=== PATIENT | male | born 1945 | race Caucasian/White ===

== ENCOUNTER 2017-01-19 12:13 | Emergency (ER) | payer MEDICARE ==
[~2017-01-19] VITALS: Ht 186.7 cm; Wt 85.0 kg
[~2017-01-19 12:13] MED LIST: ASPI1TAB69 PO; FINA5TAB2 PO; FISHCAP4 PO; MULTTAB67 PO; OMEP40CA2 PO; PRIL20CA9 PO; PROS5TAB PO; TAMS5CAP PO; TEST1GEL5 TOPICAL
[2017-01-19 12:19] VITALS: BP 142/80; PULSE 72; RESP 16; TEMP 97.9; O2SAT 98
--- NOTE | 2017-01-19 12:45 | PD ---
HPI Chief Complaint: Skin Problem Time Seen by Provider: 12:45 Travel History International Travel<30 days: No Contact w/Intl Traveler<30days: No Traveled to known affect area: No History of Present Illness HPI 71-year-old male with history of malignant melanoma, presents the emergency department for evaluation of increasing redness and swelling on the left side of his neck where his melanoma was removed. This was removed back in August at [facility]. Patient states yesterday he got a haircut around 1:00 in the neck was not swollen or red. He does not recall being nicked or cut and believes he may have been written by an insect or chills. States the area is numb so he doesn't really have any pain. Doesn't report any airway difficulties and states he doesn't feel like maybe something is different when he swallows but no difficulty swallowing. He is able to control secretions. Patient states he noticed the swelling and redness worsening and is now on his chest and up to his face so he came to the emergency department for evaluation. Patient states he has no other significant medical history. Takes no other medications. PFSH Past Medical History Cancer: Yes (melanoma) Diabetes: No Glaucoma: No Hepatitis: No Hiatal Hernia: No Hypertension: No Thyroid Disease: No Past Surgical History Abdominal Surgery: Yes (BILATERAL INGUINAL HERNIA REPAIR) AICD: Yes Cardiac Surgery: No Ear Surgery: No Endocrine Surgery: No Eye Surgery: Yes (chinyere for cataracts and detached retinas) Genitourinary Surgery: No Gynecologic Surgery: No Oral Surgery: Yes (deviated septum repair) Pacemaker: No Thoracic Surgery: No Social History Alcohol Use: Yes (rare) Tobacco Use: No (STOPPED IN EARLY 1979) Allergies-Medications (Allergen,Severity, Reaction): Coded Allergies: No Known Allergies (Verified , 09/28/16) Reported Meds & Prescriptions Reported Meds & Active Scripts Active Bactrim DS (Sulfamethoxazole-Trimethoprim) 800-160 Mg Tab 1 Tab PO BID Finasteride 5 Mg Tab 5 Mg PO DAILY Do not crush. Reported Prilosec (Omeprazole) 20 Mg Cap 75 Mg PO DAILY Omeprazole 40 Mg Cap 40 Mg PO DAILY Multiple Vitamin 1 Tab 1 Tab PO DAILY Fish Oil + D3 (Fish Oil-Cholecalciferol) 1,200-1,000 Mg-Unit Cap 1 Cap PO DAILY Aspirin 81 Mg Tabdr 81 Mg PO DAILY Testim Topical (Testosterone) 50 Mg/5 Gm Gel 1 % TOPICAL DAILY Proscar (Finasteride) 5 Mg Tab 5 Mg PO DAILY Do not crush. Flomax (Tamsulosin HCl) 0.4 Mg Cap 0.4 Mg PO HS Review of Systems Except as stated in HPI: all other systems reviewed are Neg Physical Exam Narrative GENERAL: Well-nourished elderly male patient, in no acute distress SKIN: Warm and dry. There is a large scarred incision site on the left side of the neck. There is an indurated area in the left anterior lateral neck which measures about 4 cm in diameter. It is fluctuant but there is no pointing or drainage. There is a zone of inflammation around it but no lymphangitis. Erythema does extend the patient's chest and onto the patient's face. HEAD: Atraumatic. Normocephalic. EYES: Pupils equal and round. No scleral icterus. No injection or drainage. ENT: No nasal bleeding or discharge. Mucous membranes pink and moist. NECK: Trachea midline. No JVD. CARDIOVASCULAR: Regular rate and rhythm. No murmur appreciated. RESPIRATORY: No accessory muscle use. Clear to auscultation. Breath sounds equal bilaterally. GASTROINTESTINAL: Abdomen soft, non-tender, nondistended. Hepatic and splenic margins not palpable. MUSCULOSKELETAL: No obvious deformities. No clubbing. No cyanosis. No edema. NEUROLOGICAL: Awake and alert. No obvious cranial nerve deficits. Motor grossly within normal limits. Normal speech. PSYCHIATRIC: Appropriate mood and affect; insight and judgment normal. Data Data Last Documented VS Vital Signs Date Time Temp Pulse Resp B/P Pulse Ox O2 Delivery O2 Flow Rate FiO2 01/19/17 17:37 77 18 01/19/17 17:31 98.2 157/74 100 Room Air Orders Complete Blood Count With Diff (01/19/17 12:45) Basic Metabolic Panel (Bmp) (01/19/17 12:45) ^ Saline Lock (01/19/17 17:37) Wound Culture And Gram Stain (01/19/17 17:58) Labs Laboratory Tests Test 01/19/17 12:35 White Blood Count 8.8 TH/MM3 Red Blood Count 4.21 MIL/MM3 Hemoglobin 12.4 GM/DL Hematocrit 36.4 % Mean Corpuscular Volume 86.5 FL Mean Corpuscular Hemoglobin 29.5 PG Mean Corpuscular Hemoglobin 34.1 % Concent Red Cell Distribution Width 12.7 % Platelet Count 199 TH/MM3 Mean Platelet Volume 7.6 FL Neutrophils (%) (Auto) 76.4 % Lymphocytes (%) (Auto) 14.3 % Monocytes (%) (Auto) 6.7 % Eosinophils (%) (Auto) 1.7 % Basophils (%) (Auto) 0.9 % Neutrophils # (Auto) 6.7 TH/MM3 Lymphocytes # (Auto) 1.3 TH/MM3 Monocytes # (Auto) 0.6 TH/MM3 Eosinophils # (Auto) 0.2 TH/MM3 Basophils # (Auto) 0.1 TH/MM3 CBC Comment DIFF FINAL Differential Comment Sodium Level 137 MEQ/L Potassium Level 4.8 MEQ/L Chloride Level 104 MEQ/L Carbon Dioxide Level 27.0 MEQ/L Anion Gap 6 MEQ/L Blood Urea Nitrogen 14 MG/DL Creatinine 0.91 MG/DL Estimat Glomerular Filtration 82 ML/MIN Rate Random Glucose 93 MG/DL Calcium Level 9.2 MG/DL MDM Medical Decision Making Medical Screen Exam Complete: Yes Emergency Medical Condition: Yes Medical Record Reviewed: Yes Differential Diagnosis Abscess versus cellulitis versus metastatic disease versus lymphadenopathy Narrative Course 71-year-old male presents to emergency department for evaluation. Workup was initiated in triage. The patient looks well except there does appear to be an abscess on the left side of his neck. Once a medical bed becomes available, patient will be transferred and care assumed by Dr. amato. Scripts Sulfamethoxazole-Trimethoprim (Bactrim DS)800-160 Mg Tab1 Tab PO BID #20 TAB Ref 0 Prov:Jignesh Sevilla MD 01/19/17 Condition: Stable Margaret Pleitez Jan 19, 2017 12:45
[2017-01-19 12:59] LABS: AUTOMATED NEUTROPHIL # 6.7 TH/MM3 (1.8-7.7); BASOPHIL # 0.1 TH/MM3 (0-0.2); BASOPHIL % 0.9 % (0.0-2.0); EOSINOPHIL # 0.2 TH/MM3 (0-0.4); EOSINOPHIL % 1.7 % (0.0-4.0); HEMATOCRIT 36.4 % (39.0-51.0); HEMO FLAGS DIFF FINAL; LYMPH % 14.3 % (9.0-44.0); LYMPHOCYTE # 1.3 TH/MM3 (1.0-4.8); MEAN CELL VOLUME 86.5 FL (80.0-100.0); MEAN CORPUSCULAR HEMOGLOBIN 29.5 PG (27.0-34.0); MEAN CORPUSCULAR HGB CONC 34.1 % (32.0-36.0); MONO % 6.7 % (0.0-8.0); NEUT % 76.4 % (16.0-70.0); PLATELET COUNT 199 TH/MM3 (150-450); RED BLOOD COUNT 4.21 MIL/MM3 (4.50-5.90); RED CELL DISTRIBUTION WIDTH 12.7 % (11.6-17.2); WHITE BLOOD COUNT 8.8 TH/MM3 (4.0-11.0)
[2017-01-19 13:22] LABS: POTASSIUM 4.8 MEQ/L (3.5-5.1)
[2017-01-19 17:31] VITALS: BP 157/74; PULSE 77; RESP 18; TEMP 98.2; O2SAT 100
[2017-01-19] MEDS ORDERED: BACT800T5 PO (18:16)
--- NOTE | 2017-01-19 18:16 | PD ---
HPI Chief Complaint: Skin Problem Time Seen by Provider: 17:35 Travel History International Travel<30 days: No Contact w/Intl Traveler<30days: No Traveled to known affect area: No History of Present Illness HPI 71-year-old male came to the emergency room sent by his primary care for redness and swelling on the left side of his neck area. Patient had melanoma with lymph node resected from that side on August 2016. It was done by a surgeon Denis Spence from [facility]. Patient says that for past 2 days he has noticed this lump appearing on the left side of his neck just below the jaw. There was some tenderness especially if he pushed on it. He has also noticed some discharge coming out of there. No history of fever or chills. He called his primary care this morning and explained the situation and the primary care asked them to come to the emergency room since he did not have any opening to see him. Patient was seen by the triage provider and blood work was initiated. By the time he came inside the ER and I saw him blood test results were back. They were all within normal limits. Patient did not appear to be in any discomfort. [facility] Past Medical History Narrative Medical List of his past medical, social, surgical and family history is reviewed from the nursing note. Cancer: Yes (melanoma) Diabetes: No Glaucoma: No Hepatitis: No Hiatal Hernia: No Hypertension: No Medical other: Yes (GERD; BPH; ARTHRITIS; ARTHRITIS IN NECK; BILAT DETACHED RETINA) Thyroid Disease: No Past Surgical History Abdominal Surgery: Yes (BILATERAL INGUINAL HERNIA REPAIR) AICD: Yes Cardiac Surgery: No Ear Surgery: No Endocrine Surgery: No Eye Surgery: Yes (chinyere for cataracts and detached retinas) Genitourinary Surgery: No Gynecologic Surgery: No Oral Surgery: Yes (deviated septum repair) Pacemaker: No Thoracic Surgery: No Other Surgery: Yes (CA REMOVAL FROM LEFT NECK, MULTIPLE SKIN CA REMOVALS) Social History Alcohol Use: Yes (rare) Tobacco Use: No (STOPPED IN EARLY 1979) Substance Use: No Allergies-Medications (Allergen,Severity, Reaction): Coded Allergies: No Known Allergies (Verified , 09/28/16) Comments No known drug allergies. Reported Meds & Prescriptions Reported Meds & Active Scripts Active Bactrim DS (Sulfamethoxazole-Trimethoprim) 800-160 Mg Tab 1 Tab PO BID Finasteride 5 Mg Tab 5 Mg PO DAILY Do not crush. Reported Prilosec (Omeprazole) 20 Mg Cap 75 Mg PO DAILY Omeprazole 40 Mg Cap 40 Mg PO DAILY Multiple Vitamin 1 Tab 1 Tab PO DAILY Fish Oil + D3 (Fish Oil-Cholecalciferol) 1,200-1,000 Mg-Unit Cap 1 Cap PO DAILY Aspirin 81 Mg Tabdr 81 Mg PO DAILY Testim Topical (Testosterone) 50 Mg/5 Gm Gel 1 % TOPICAL DAILY Proscar (Finasteride) 5 Mg Tab 5 Mg PO DAILY Do not crush. Flomax (Tamsulosin HCl) 0.4 Mg Cap 0.4 Mg PO HS Narrative Medication List of his home medications reviewed from the nursing note. Review of Systems Except as stated in HPI: all other systems reviewed are Neg Physical Exam Narrative GENERAL: Awake, alert, no obvious distress SKIN: Warm and dry. Surgical scar on the left side of the neck starting from the posterior and inferior auricular area all the way down to the bottom of the neck. This whole area appears to be erythematous and slightly warm to touch. There is a 2 x 2 x 1 cm fluctuant swelling which is tender to touch on moderate pressure. Upon moderate pressure there is some discharge coming out from a tiny opening at the inferior pole of the swelling. This appears to be seropurulent in nature. There is a dark discoloration of the bottom half of the swelling. No obvious bleeding from the area. HEAD: Atraumatic. Normocephalic. EYES: Pupils equal and round. No scleral icterus. No injection or drainage. ENT: No nasal bleeding or discharge. Mucous membranes pink and moist. NECK: Trachea midline. No JVD. Please see above CARDIOVASCULAR: Regular rate and rhythm. No murmur appreciated. RESPIRATORY: No accessory muscle use. Clear to auscultation. Breath sounds equal bilaterally. GASTROINTESTINAL: Abdomen soft, non-tender, nondistended. Hepatic and splenic margins not palpable. MUSCULOSKELETAL: No obvious deformities. No clubbing. No cyanosis. No edema. NEUROLOGICAL: Awake and alert. No obvious cranial nerve deficits. Motor grossly within normal limits. Normal speech. PSYCHIATRIC: Appropriate mood and affect; insight and judgment normal. Data Data Last Documented VS Vital Signs Date Time Temp Pulse Resp B/P Pulse Ox O2 Delivery O2 Flow Rate FiO2 01/19/17 17:37 77 18 01/19/17 17:31 98.2 157/74 100 Room Air Orders Complete Blood Count With Diff (01/19/17 12:45) Basic Metabolic Panel (Bmp) (01/19/17 12:45) ^ Saline Lock (01/19/17 17:37) Wound Culture And Gram Stain (01/19/17 17:58) Labs Laboratory Tests Test 01/19/17 12:35 White Blood Count 8.8 TH/MM3 Red Blood Count 4.21 MIL/MM3 Hemoglobin 12.4 GM/DL Hematocrit 36.4 % Mean Corpuscular Volume 86.5 FL Mean Corpuscular Hemoglobin 29.5 PG Mean Corpuscular Hemoglobin 34.1 % Concent Red Cell Distribution Width 12.7 % Platelet Count 199 TH/MM3 Mean Platelet Volume 7.6 FL Neutrophils (%) (Auto) 76.4 % Lymphocytes (%) (Auto) 14.3 % Monocytes (%) (Auto) 6.7 % Eosinophils (%) (Auto) 1.7 % Basophils (%) (Auto) 0.9 % Neutrophils # (Auto) 6.7 TH/MM3 Lymphocytes # (Auto) 1.3 TH/MM3 Monocytes # (Auto) 0.6 TH/MM3 Eosinophils # (Auto) 0.2 TH/MM3 Basophils # (Auto) 0.1 TH/MM3 CBC Comment DIFF FINAL Differential Comment Sodium Level 137 MEQ/L Potassium Level 4.8 MEQ/L Chloride Level 104 MEQ/L Carbon Dioxide Level 27.0 MEQ/L Anion Gap 6 MEQ/L Blood Urea Nitrogen 14 MG/DL Creatinine 0.91 MG/DL Estimat Glomerular Filtration 82 ML/MIN Rate Random Glucose 93 MG/DL Calcium Level 9.2 MG/DL MDM Medical Decision Making Medical Screen Exam Complete: Yes Emergency Medical Condition: Yes Medical Record Reviewed: Yes Differential Diagnosis Cellulitis with abscess, recurrence of melanoma along with cellulitis Narrative Course 6 PM I wanted to do a CAT scan of the soft tissue of the neck with IV contrast. However patient did not want to wait for the CAT scan since his was waiting for him at home and as per him she would get very agitated if he did not go back home soon. His son was in the room with him. He witnessed the conversation I had with the patient. I explained to the patient that in my opinion given the blood test and my exam I do not see an emergency room doing the CAT scan tonight. Hence he could go home as long as he can get an outpatient CAT scan within the next day or 2 since I do not know the extent of the lesion internally. Also if there is a possibility of the melanoma recurring which hopefully the CAT scan could detect. Given the discoloration/ pigmentation of the swelling there is a chance that it could be a recurrence of the melanoma. Hence it would not be napier to do an I&D on this possible abscess. I strongly encouraged him to call his surgeon from [facility] tomorrow morning and get an appointment with him next week. He understood and said that it should not be a problem. He also said that he would have his primary care order a CAT scan for tomorrow. Patient will go home with copies of the blood test result so that would know his family no function for contrast injection. I have canceled the CAT scan study and I will discharge the patient home on Bactrim DS. I collected swab of the discharge from wound culture which has been sent. Procedures EKG Prior to Arrival: No Diagnosis Primary Impression: Cellulitis and abscess of face Additional Impression: infection at the melanoma resection site Referrals: Primary Care Physician 1 day Additional Instructions: You chose not to get a CAT scan of her neck in the emergency room tonight. Please make sure that you get a CAT scan outpatient ordered by your primary care as soon as possible. Ideally by tomorrow. The CAT scan showed be done with contrast. Please take the blood test report copy that has been given to you from the emergency room to look for renal function for the contrast injection. Please call your surgeon from [place] who did the melanoma resection to get an appointment with him as soon as possible so that he can evaluate the lesion and decide if any surgery is needed. Please return to the ER if the condition worsens or any other new concerns. Med/Other Pt SpecificInfo: Prescription(s) given Scripts Sulfamethoxazole-Trimethoprim (Bactrim DS)800-160 Mg Tab1 Tab PO BID #20 TAB Ref 0 Prov:Jignesh Sevilla MD 01/19/17 Disposition: 01 DISCHARGE HOME Condition: Stable Jignesh Sevilla MD Jan 19, 2017 18:16
== END 2017-01-19 18:28 | disposition home or self-care (01) ==
LOC: NEPA 12:13
DX: L03.211 Cellulitis of face (principal); L02.01 Cutaneous abscess of face; B95.61 Methicillin susceptible Staphylococcus aureus infection as the cause of diseases classified elsewhere; Z85.820 Personal history of malignant melanoma of skin; Z87.891 Personal history of nicotine dependence
CPT/HCPCS: 80048; 85025; 86403; 87070; 87186; 99283